=== PATIENT | female | born 1945 | race Caucasian/White ===

== ENCOUNTER 2018-05-15 14:04 | Observation (INO) | payer OTHER ==
--- NOTE | 2018-05-15 14:38 | EDPHY ---
H & P Smoking Status: Never smoked Time Seen by Provider: 05/15/18 14:23 HPI/ROS: CHIEF COMPLAINT: Shortness of breath and lightheaded HISTORY OF PRESENT ILLNESS: Patient had a parathyroidectomy on Wednesday. This adenoma removal was performed in [place] and she flew back yesterday. Yesterday she felt tired and today she feels dizzy and short of breath. Shortness of breath is mild to moderate, a little bit worse with exertion, not positional. No cough or fever. Associated with dizziness which she describes a feeling of being lightheaded or near syncopal but not vertigo or spinning or trouble with ataxia. No chest pain. Her coronary disease she thinks was associated with mild heartburn which she did not have today. REVIEW OF SYSTEMS: Eye: no change in vision ENT: no sore throat Cardiac: HPI Pulmonary: HPI Abdomen: no vomiting, diarrhea, abdominal pain Musculoskeletal: no back pain or leg swelling Skin: no rash Neuro: no headache Constitutional: no fever but feels generally more fatigued : Increased urination and increased thirst over the past 2 days A comprehensive 10 point review of systems is otherwise negative aside from elements mentioned in the history of present illness. PAST MEDICAL HISTORY: Includes coronary disease with stenting, diabetes, hypertension, , parathyroidectomy as in HPI Social history: Here with her daughter, recent travel from [place] as noted above General Appearance: Alert and conversant, cooperative. Eyes: No scleral icterus. ENT, Mouth: Normal mucous membranes. Respiratory: Normal respiratory effort, breath sounds equal, lungs are clear to auscultation. Cardiovascular: Regular rate and rhythm. Gastrointestinal: Abdomen is soft and non tender. Neurological: Alert, face symmetric, normal motor and sensory in extremities. Skin: Neck incision is clean dry and intact. Musculoskeletal: No peripheral edema. No calf tenderness. Psychiatric: Not agitated. Emergency Department course/MDM: Differential broad and includes but not limited to coronary disease or ACS, pulmonary embolism, metabolic abnormality or electrolyte problem. Chest x-ray and EKG, troponin, D-dimer, electrolytes to include ionized calcium , urinalysis. Symptoms certainly are described clinically more like lightheaded or near syncope, and not as vertigo or ataxia. Signed out to Sheets at 1520 with labs pending. Plan for CTA chest if d-dimer elevated. If all negative, would consider admit for ACS evaluation in patient with known diabetes and CAD and new dyspnea and lightheaded. (Anup Stover) Constitutional: Initial Vital Signs Temperature (C) 37.1 C 05/15/18 14:17 Heart Rate 84 05/15/18 14:17 Respiratory Rate 16 05/15/18 14:17 Blood Pressure 189/117 H 05/15/18 14:17 O2 Sat (%) 98 05/15/18 14:17 O2 Delivery Mode Room Air Allergies/Adverse Reactions: pentobarbital [From Nembutal Sodium] Allergy (Verified 05/15/18 14:14) Home Medications: Medication Instructions Recorded Aspirin EC [Aspirin EC 81 mg (*)] 81 mg PO DAILY 05/15/18 Calcium Citrate W/Vit D [Citracal 315 mg PO Q4 05/15/18 + D (OTC)] Carvedilol [Coreg (*)] 25 mg PO BIDMEAL 05/15/18 Clopidogrel Bisulfate [Clopidogrel] 75 mg PO DAILY 05/15/18 Diltiazem HCl [Diltiazem 24Hr ER] 120 mg PO DAILY 05/15/18 Herbals/Supplements -Info Only 1 ea PO DAILY 05/15/18 Hydrochlorothiazide [HCTZ (*)] 25 mg PO DAILY 05/15/18 Insulin Aspart [novoLOG] 10 unit SQ DAILY 05/15/18 Insulin Detemir [Levemir] 20 unit SQ HS 05/15/18 Losartan Potassium [Cozaar 50 mg 50 mg PO BID 05/15/18 (*)] Multivitamins [Multivitamin (*)] 1 each PO DAILY 05/15/18 metFORMIN HCL [Metformin HCl] 500 mg PO BIDMEAL 05/15/18 Medical Decision Making - Diagnostics Imaging: I viewed and interpreted images myself - Diagnostics EKG Interpretation: 12-lead EKG interpreted by me; official reading is in trace master. My interpretation is sinus rhythm rate 87 with no ischemic changes (Anup Stover) Imaging Results: Imaging Impressions Chest X-Ray 05/15/18 14:34 Impression: No evidence for acute cardiopulmonary abnormality. Chronic findings as above. Chest x-ray personally interpreted as negative for infiltrates or CHF. (Anup Stover) ED Course/Re-evaluation: 16:14 re-evaluated patient, discussed results of test. D-dimer negative. No evidence of significant hyperglycemia. Patient with new left neck and occipital pain which is reproducible on palpation. Discussed her past medical history, recent surgery, current symptoms and agreed that admission for observation and rule out warranted. 16:[address] Aburto, accepted for observation for rule out. (Samara Gray) Differential Diagnosis: Differential diagnosis considered for shortness of breath including but not limited to pulmonary infectious process, COPD, asthma, pulmonary embolus and congestive heart failure. (Anup Stover) - Data Points Laboratory Results: Laboratory Results 05/15/18 14:55 05/15/18 14:55 05/15/18 05/15/18 05/15/18 15:20 15:05 14:59 WBC RBC Hgb Hct MCV MCH MCHC RDW Plt Count MPV Neut % (Auto) Lymph % (Auto) [place] % (Auto) Eos % (Auto) Baso % (Auto) Nucleat RBC Rel Count Absolute Neuts (auto) Absolute Lymphs (auto) Absolute Monos (auto) Absolute Eos (auto) Absolute Basos (auto) Absolute Nucleated RBC Immature Gran % Immature Gran # D-Dimer Sodium Potassium Chloride Carbon Dioxide Anion Gap BUN Creatinine Estimated GFR Glucose Calcium Ionized Calcium 1.39 MMOL/L H MMOL/L (1.12-1.30) Phosphorus POC Troponin I 0.01 ng/mL ng/mL (0.00-0.08) Urine Color PALE YELLOW Urine Appearance CLEAR Urine pH 7.0 (5.0-7.5) Ur Specific [place] 1.004 (1.002-1.030) Urine Protein NEGATIVE (NEGATIVE) Urine Ketones NEGATIVE (NEGATIVE) Urine Blood NEGATIVE (NEGATIVE) Urine Nitrate NEGATIVE (NEGATIVE) Urine Bilirubin NEGATIVE (NEGATIVE) Urine Urobilinogen NEGATIVE EU EU (0.2-1.0) Ur Leukocyte Esterase NEGATIVE (NEGATIVE) Urine Glucose NEGATIVE (NEGATIVE) 05/15/18 05/15/18 05/15/18 14:55 14:55 14:55 WBC 7.60 10^3/uL 10^3/uL (3.80-9.50) RBC 4.30 10^6/uL 10^6/uL (4.18-5.33) Hgb 13.0 g/dL g/dL (12.6-16.3) Hct 37.5 % L % (38.0-47.0) MCV 87.2 fL fL (81.5-99.8) MCH 30.2 pg pg (27.9-34.1) MCHC 34.7 g/dL g/dL (32.4-36.7) RDW 13.2 % % (11.5-15.2) Plt Count 297 10^3/uL 10^3/uL (150-400) MPV 9.2 fL fL (8.7-11.7) Neut % (Auto) 57.2 % % (39.3-74.2) Lymph % (Auto) 29.2 % % (15.0-45.0) [place] % (Auto) 9.7 % % (4.5-13.0) Eos % (Auto) 2.9 % % (0.6-7.6) Baso % (Auto) 0.9 % % (0.3-1.7) Nucleat RBC Rel Count 0.0 % % (0.0-0.2) Absolute Neuts (auto) 4.34 10^3/uL 10^3/uL (1.70-6.50) Absolute Lymphs (auto) 2.22 10^3/uL 10^3/uL (1.00-3.00) Absolute Monos (auto) 0.74 10^3/uL 10^3/uL (0.30-0.80) Absolute Eos (auto) 0.22 10^3/uL 10^3/uL (0.03-0.40) Absolute Basos (auto) 0.07 10^3/uL 10^3/uL (0.02-0.10) Absolute Nucleated RBC 0.00 10^3/uL 10^3/uL (0-0.01) Immature Gran % 0.1 % % (0.0-1.1) Immature Gran # 0.01 10^3/uL 10^3/uL (0.00-0.10) D-Dimer 0.33 ug/mLFEU ug/mLFEU (0.00-0.50) Sodium 135 mEq/L mEq/L (135-145) Potassium 3.6 mEq/L mEq/L (3.3-5.0) Chloride 95 mEq/L L mEq/L (97-110) Carbon Dioxide 26 mEq/l mEq/l (22-31) Anion Gap 14 mEq/L mEq/L (8-16) BUN 19 mg/dL mg/dL (7-23) Creatinine 0.8 mg/dL mg/dL (0.6-1.0) Estimated GFR > 60 Glucose 125 mg/dL H mg/dL (70-100) Calcium 11.6 mg/dL H mg/dL (8.5-10.4) Ionized Calcium Phosphorus 3.9 mg/dL mg/dL (2.5-4.5) POC Troponin I Urine Color Urine Appearance Urine pH Ur Specific [place] Urine Protein Urine Ketones Urine Blood Urine Nitrate Urine Bilirubin Urine Urobilinogen Ur Leukocyte Esterase Urine Glucose Medications Given: Discontinued Medications Ibuprofen (Motrin) 600 mg PO EDNOW ONE Stop: 05/15/18 16:53 Last Admin: 05/15/18 16:55 Dose: 600 mg Point of Care Test Results: Chemistry 05/15/18 15:05 POC Troponin I 0.01 ng/mL ng/mL (0.00-0.08) Departure - Departure Disposition: [facility] Inpatient Acute Clinical Impression: Dyspnea Qualifiers: Dyspnea type: shortness of breath Qualified Code(s): R06.02 - Shortness of breath Condition: Good
--- NOTE | 2018-05-15 15:05 | CPEKG ---
Heart Rate: 87 RR Interval: 690 P-R Interval: 184 QRSD Interval: 92 QT Interval: 368 QTC Interval: 443 P [place]: 67 QRS [place]: 33 T Wave [place]: 54 EKG Severity - NORMAL ECG - EKG Impression: SINUS RHYTHM Electronically Signed By: Anup Stover 15-May-2018 15:05:24
[2018-05-15 15:21] LABS: PLATELET COUNT 297 10^3/uL (150-400)
[2018-05-15] MEDS ORDERED: IBUPROFEN 600 MG TAB PO ONE (16:52)
[2018-05-15] MEDS: LOSARTAN POTASSIUM 50 MG TAB PO SCH (20:13)
[2018-05-15] MEDS: CARVEDILOL 25 MG TAB PO SCH (20:14)
[2018-05-15] MEDS ORDERED: ONDANSETRON DISINTEGRATING 4 MG TAB PO PRN (20:43)
[2018-05-15] MEDS ORDERED: ONDANSETRON 4 MG/2 ML VIAL IVP PRN (20:43)
[2018-05-15] MEDS ORDERED: ACETAMINOPHEN 325 MG TAB PO PRN (20:43)
[2018-05-15] MEDS ORDERED: D50W 25 GM/50 ML VIAL IVP PRN (20:45)
[2018-05-15] MEDS ORDERED: INSULIN DETEMIR 20 UNIT SQ SCH (21:00)
[2018-05-15] MEDS ORDERED: INSULIN GLARGINE 100 UNITS/ML UNIT SC SCH (21:00)
--- NOTE | 2018-05-15 21:25 | GHP ---
[f rep st] HISTORY AND PHYSICAL DATE OF ADMISSION: 05/15/2018 CHIEF COMPLAINT: Shortness of breath. HISTORY OF PRESENT ILLNESS: This is a 72-year-old female who just returned from [place] on Wednesday. She went there to get parathyroidectomy done [facility]. She did feel pretty go od after the operation. However, she flew back yesterday and today she felt tired, dizzy, and had sh ortness of breath. No chest pain. She had some lightheadedness. Her blood pressure is elevated her e. She denies any fevers or chills. No cough. No pain in her lower extremities. No leg pain or ca lf pain. REVIEW OF SYSTEMS: A 10-point review of systems was obtained; and, other than stated above, is negat yamila. PAST MEDICAL HISTORY: 1. Coronary artery disease, status post stent 5 years ago. 2. Type 2 diabetes. 3. Hypertension. 4. Hyperparathyroidism. SOCIAL HISTORY: No smoking or alcohol. Lives here with her daughter. FAMILY HISTORY: Reviewed and noncontributory. PHYSICAL EXAMINATION: VITAL SIGNS: Afebrile. Blood pressure when she arrived was in the 200/100 sy stolic range and has now come down to 150/80 range. Heart rate 82. Oxygen saturation 95% on room ai r. GENERAL: The patient is well developed, in no apparent distress. HEENT: Nonicteric sclerae. E xtraocular muscles intact. Moist mucous membranes. NECK: Supple. No thyromegaly. LUNGS: Good ef fort. Clear to auscultation bilaterally. CARDIOVASCULAR: Regular rate and rhythm. No murmurs, rub s, or gallops. ABDOMEN: Positive bowel sounds. Soft, nontender, nondistended. No hepatosplenomega ly. EXTREMITIES: No clubbing, cyanosis, or edema. SKIN: Without rash. Dry and intact. NEUROLOGI C: Alert and oriented x3. Moving all 4 extremities equally. PSYCH: Normal affect. LABORATORY DATA: CBC is normal. D-dimer is negative. Chemistry shows an elevated calcium of 11.6. Troponin is negative. EKG personally reviewed and interpreted. No ischemic changes. ASSESSMENT: This is a 72-year-old female presenting with dyspnea and dizziness after recent parathyr oidectomy and travel. PLAN: 1. Shortness of breath and dizziness. I suspect this may be due to her elevated blood pressure. He r blood pressure is better now and she feels better. She denies chest pain. I do not think this is an acute coronary syndrome. We will monitor her overnight and cycle troponins. Will defer stress te sting to outpatient if it is negative. She does need to follow up with hr manager outpatient. 2. Type 2 diabetes. Will continue her medications. 3. Hypertension. Blood pressure is better now with her on her medicines. Will continue to watch em. Watch her blood pressure. 4. Recent parathyroidectomy. Calcium is still elevated, which is expected. /[id number]/MODL
[2018-05-16] MEDS: VIT D PO SCH ×3 (01:18→12:01)
[2018-05-16] MEDS: CALCIUM CITRATE PO SCH ×3 (01:18→12:01)
[2018-05-16 07:39] VITALS: BP 164/92
[2018-05-16] MEDS ORDERED: INSULIN LISPRO 100 UNIT/ML SC SCH (08:00)
[2018-05-16] MEDS ORDERED: metFORMIN HCL 500 MG TAB PO SCH (08:00)
[2018-05-16] MEDS: CARVEDILOL 25 MG TAB PO SCH (08:27)
[2018-05-16] MEDS: LOSARTAN POTASSIUM 50 MG TAB PO SCH (08:28)
[2018-05-16] MEDS ORDERED: DILTIAZEM CD 120 MG CAP PO SCH (09:00)
[2018-05-16] MEDS ORDERED: INSULIN ASPART 10 UNIT SQ SCH (09:00)
[2018-05-16] MEDS ORDERED: HYDROCHLOROTHIAZIDE 25 MG TAB PO SCH (09:00)
[2018-05-16] MEDS ORDERED: CLOPIDOGREL BISULFATE 75 MG TAB PO SCH (09:00)
[2018-05-16] MEDS ORDERED: ASPIRIN EC 81 MG TAB PO SCH (09:00)
--- NOTE | 2018-05-16 09:47 | GDS ---
[ rep st] DISCHARGE SUMMARY DISCHARGE DIAGNOSES: 1. Accelerated hypertension. 2. Coronary artery disease, status post stent 5 years ago. 3. Type 2 diabetes. 4. Hypertension. 5. Hyperparathyroidism, status post resection on Wednesday. HPI: A 72-year-old female with resistant hypertension, hyperparathyroidism, who just returned from [facility] on Wednesday after undergoing an elective parathyroidectomy. She felt pretty good after the oper ation, however, she flew back on the , felt very tired, dizzy, and short of breath. Denies any c hest pain. She had some lightheadedness. Her blood pressure in the emergency room was elevated at 2 07/126. HOSPITAL COURSE BY PROBLEM: 1. Accelerated hypertension: No evidence of end-organ damage. She had negative troponins and vanesa l kidney function. Suspect hyperparathyroid is likely etiology, as she is on multiple medications. I advised her to keep a log of blood pressures at least twice a day, and establish care with a cardio logist here. Her blood pressure may improve after her surgery. If still elevated, would recommend solomon evaluation including renal artery stenosis. 2. Type 2 diabetes. Continue glargine. 3. Obesity. 4. Coronary disease: Resume Plavix, aspirin, and beta jazzmine. 5. Recommend exercise and diet changes. 6. Hyperparathyroidism: Recent prior parathyroidectomy. She needs to monitor her blood pressure. DISPOSITION: Patient is stable for discharge home. NEW MEDICATIONS: None. FOLLOWUP: 1. Establish care with [facility]. 2. Follow up with primary care physician. 3. If BP remains persistently elevated, recommend further evaluation including renal ultrasound. SUBJECTIVE: Feeling much better. No chest pain, shortness of breath, headache, or dizziness. PHYSICAL EXAMINATION: VITAL SIGNS: Temperature 36.8, blood pressure 164/92, heart rate in the 80s, respiration 14, 96% on room air. GENERAL: Overweight female in no acute distress. HEENT: Neck inc ision clean, dry, and intact. CV: Regular rhythm. LUNGS: Clear. ABDOMEN: Soft, nontender. Posi tive bowel sounds. : No Simon. MUSCULOSKELETAL: Moving all 4 extremities. NEUROLOGIC: 2 throu gh 12 intact. PSYCH: Alert and oriented x3. Time spent on discharge greater than 30 minutes at bedside with patient and daughter explaining medic ations and followup plan and coordinating discharge. /[id number]/MODL
== END 2018-05-16 11:03 | disposition home or self-care (01) ==
LOC: F3N 17:17
PROVIDERS: ADMIT Internal Medicine; ATTEND Internal Medicine
DX: I10 Essential (primary) hypertension (principal); I25.10 Atherosclerotic heart disease of native coronary artery without angina pectoris; E11.9 Type 2 diabetes mellitus without complications; E21.3 Hyperparathyroidism, unspecified; Z95.9 Presence of cardiac and vascular implant and graft, unspecified
CPT/HCPCS: 71046; 93005; 99285; G0378; J1815; 84484-PO